=== PATIENT | female | born 1960 | race Hispanic/Latino ===

== ENCOUNTER 2017-02-22 17:56 | Emergency (ER) | payer OTHER ==
[2017-02-22 18:47] VITALS: BP 130/79; PULSE 68; RESP 16; TEMP 98.5; O2SAT 98
[2017-02-22 20:17] LABS: RBC URINE 4 /hpf (0-3); URINE BACTERIA RARE (<OCC); URINE BILIRUBIN NEGATIVE (NEGATIVE); URINE BLOOD NEGATIVE (NEGATIVE); URINE COLOR YELLOW (YELLOW); URINE GLUCOSE (UA) NEG (Normal); URINE KETONE NEGATIVE (NEGATIVE); URINE LEUKOCYTE ESTERASE NEG Leu/uL (Negative); URINE PROTEIN NEGATIVE (NEGATIVE); URINE UROBILINOGEN 0.2-1.0 mg/dL (0.2-1.0); WBC URINE 3 /hpf (0-5)
--- NOTE | 2017-02-22 20:53 | ED PDOC ---
HPI: Back Time Seen by Provider: 02/22/17 19:00 Chief Complaint (Nursing): Back Pain Chief Complaint (Provider): back pain History Per: Patient History/Exam Limitations: no limitations Onset/Duration Of Symptoms: Days (x 1) Current Symptoms Are (Timing): Still Present Additional Complaint(s): Ely Poe is a 56 year old female, with a previous medical history of fibromyalgia, hypertension diabetes and obesity, and sciatica, who presents to the ED with left mid back pain ongoing since yesterda/ Patient denies any urinary symptoms, fever or vomiting. PMD: none provided Past Medical History Reviewed: Historical Data, Nursing Documentation, Vital Signs Vital Signs: Last Vital Signs Temp 98.5 F 02/22/17 18:42 Pulse 68 02/22/17 18:42 Resp 16 02/22/17 18:42 BP 130/79 02/22/17 18:42 Pulse Ox 98 02/22/17 18:42 - Medical History PMH: Diabetes, HTN Other PMH: fibromyalgia - Surgical History Surgical History: No Surg Hx - Family History Family History: States: Unknown Family Hx - Social History Current smoker - smoking cessation education provided: No Alcohol: None Drugs: Denies - Home Medications Home Medications: Ambulatory Orders Medication Instructions Recorded Ibuprofen [Motrin] 600 mg PO Q6H PRN #20 tab 02/22/17 - Allergies Allergies/Adverse Reactions: Allergies Allergy/AdvReac Type Severity Reaction Status Date / Time No Known Allergies Allergy Verified 02/22/17 18:42 Review of Systems ROS Statement: Except As Marked, All Systems Reviewed And Found Negative Musculoskeletal: Positive for: Back Pain Physical Exam - Reviewed Nursing Documentation Reviewed: Yes Vital Signs Reviewed: Yes - Physical Exam Appears: Positive for: Well, Non-toxic, No Acute Distress Head Exam: Positive for: ATRAUMATIC, NORMAL INSPECTION, NORMOCEPHALIC Skin: Positive for: Normal Color, Warm, Dry Cardiovascular/Chest: Positive for: Regular Rate, Rhythm Respiratory: Positive for: CNT, Normal Breath Sounds Gastrointestinal/Abdominal: Positive for: Normal Exam, Bowel Sounds, Soft. Negative for: Tenderness Back: Positive for: Normal Inspection. Negative for: L CVA Tenderness, R CVA Tenderness, Vertebral Tenderness Extremity: Positive for: Normal ROM Neurologic/Psych: Positive for: Alert, Oriented - Laboratory Results Urine dip results: Negative for: Leukocyte Esterase, Blood, Nitrate, Ketones, Glucose, Bilirubin, Protein - ECG O2 Sat by Pulse Oximetry: 98 (RA) Pulse Ox Interpretation: Normal Medical Decision Making Medical Decision Making: Initial Impression: back pain r/o UTI Initial Plan: * flexeril * urine culture * urinalysis * motrin * reevaluation Patient was given motrin, flexeril percocet for back pain. pt feels better with medication. ambulating around the ER in no distress. Pt will follow up with pcp and with orthopedics. Scribe Attestation: Documented by Bhavana Sahni, acting as a scribe for Cari Larry MD. Provider Scribe Attestation: All medical record entries made by the Scribe were at my direction and personally dictated by me. I have reviewed the chart and agree that the record accurately reflects my personal performance of the history, physical exam, medical decision making, and the department course for this patient. I have also personally directed, reviewed, and agree with the discharge instructions and disposition. Disposition - Clinical Impression Clinical Impression: Back pain - Patient ED Disposition Is Patient to be Admitted: No Counseled Patient/Family Regarding: Studies Performed, Diagnosis, Need For Followup - Disposition Referrals: [facility] [Outside] [facility] [place] [Outside] Disposition: Routine/Home Disposition Time: 21:00 Condition: IMPROVED Additional Instructions: follow up with your primary doctor in 1-2 days return to ED with any worsening or concerning symptoms. Prescriptions: Ibuprofen [Motrin] 600 mg PO Q6H PRN #20 tab PRN Reason: Pain, Moderate (4-7) Instructions: Back Pain (ED)
[2017-02-22] MEDS ORDERED: Oxycodone/Acetaminophen 5/325 mg Tab PO ONE (21:10)
[2017-02-22] MEDS ORDERED: Oxycodone/Acetaminophen 5/325 mg Tab ONE (21:13)
== END 2017-02-22 22:21 | disposition home or self-care (01) ==
LOC: H.ER 17:56
DX: M54.6 Pain in thoracic spine (principal); I10 Essential (primary) hypertension; M79.7 Fibromyalgia; E66.9 Obesity, unspecified; E11.9 Type 2 diabetes mellitus without complications